=== PATIENT | male | born 1985 | race Caucasian/White ===

== ENCOUNTER 2018-11-26 11:34 | Emergency (ER) | payer OTHER ==
[2018-11-26] MEDS ORDERED: MORPHINE SULFATE 10 MG/ML INJ IV ONE (12:39)
[2018-11-26 13:02] LABS: ABSOLUTE BASOPHILS # (AUTO) 0.1 10^3/uL (0.0-0.2); ABSOLUTE EOSINOPHILS # (AUTO) 0.3 10^3/uL (0.0-0.6); ABSOLUTE LYMPHOCYTES (AUTO) 2.5 10^3/uL (0.5-4.7); ABSOLUTE MONOCYTES (AUTO) 0.8 10^3/uL (0.1-1.4); ABSOLUTE NEUT (AUTO) 4.9 10^3/uL (1.7-8.2); EOSINOPHILS % (AUTO) 3.3 % (0-6); HEMOGLOBIN 16.1 g/dL (13.5-17.0); LYMPHOCYTES % (AUTO) 29.5 % (13-45); MEAN CORPUSCULAR HEMOGLOBIN 30.2 pg (27.0-33.4); MEAN CORPUSCULAR VOLUME 86 fl (80-97); MONOCYTES % (AUTO) 8.9 % (3-13); PLATELET COUNT 339 10^3/uL (150-450); RED BLOOD COUNT 5.32 10^6/uL (4.35-5.55); RED CELL DISTRIBUTION WIDTH 12.6 % (11.5-14.0); SEGMENTED NEUTROPHILS % (AUTO) 57.3 % (42-78); TOTAL CELLS COUNTED % (AUTO) 100 %; WHITE BLOOD COUNT 8.5 10^3/uL (4.0-10.5)
[2018-11-26 13:18] LABS: ANION GAP 9 (5-19); BLOOD UREA NITROGEN 14 mg/dL (7-20); CARBON DIOXIDE 29 mmol/L (22-30); CHLORIDE 103 mmol/L (98-107); GLUCOSE 92 mg/dL (75-110); POTASSIUM 4.8 mmol/L (3.6-5.0)
--- NOTE | 2018-11-26 13:38 | ER Document Report ---
ED GI Bleed / Rectal Pain - General Chief Complaint: Rectal Pain Stated Complaint: RECTAL PAIN Time Seen by Provider: 11/26/18 12:17 - HPI Notes: This is a 33-year-old gentleman who presents today with a complaint of rectal pain for the past 1 to 2 days. Patient states that he has a history of hemorrhoids and thinks that this is from his hemorrhoids. Pain is worse with defecation. He denies any fever or chills. He denies any trauma. He denies any rectal sexual activity. - Related Data Allergies/Adverse Reactions: fluconazole Allergy (Intermediate, Verified 11/26/18 11:40) Visual disturbances Past Medical History - Social History Smoking Status: Current Every Day Smoker Chew tobacco use (# tins/day): No Frequency of alcohol use: None Drug Abuse: None Family History: Reviewed & Not Pertinent Patient has suicidal ideation: No Patient has homicidal ideation: No Past Surgical History: Reports: Hx Orthopedic Surgery - R knee surgery Review of Systems - Review of Systems Constitutional: Fever Gastrointestinal: Other - Rectal pain. denies: Abdominal pain, Constipation, Rectal bleeding -: Yes All other systems reviewed and negative Physical Exam - Vital signs Vitals: Temp Pulse Resp BP Pulse Ox 97.8 F 70 16 114/67 100 11/26/18 11:40 11/26/18 11:40 11/26/18 11:40 11/26/18 11:40 11/26/18 11:40 - General General appearance: Appears well, Alert - Respiratory Respiratory status: No respiratory distress Chest status: Nontender Breath sounds: Normal Chest palpation: Normal - Cardiovascular Rhythm: Regular Heart sounds: Normal auscultation Murmur: No - Abdominal Inspection: Normal Distension: No distension Bowel sounds: Normal Tenderness: Nontender Organomegaly: No organomegaly - Rectal Notes: There is swelling and fluctuance in the right perianal area. It looks to be a thrombosed external hemorrhoid with no bleeding. Her very slight erythema on the right buttock area. No fluctuance or tenderness. - Neurological Neuro grossly intact: Yes Cognition: Normal Orientation: AAOx4 [place] Coma Scale Eye Opening: Spontaneous [place] Coma Scale Verbal: Oriented [place] Coma Scale Motor: Obeys Commands [place] Coma Scale Total: 15 Speech: Normal Motor strength normal: LUE, RUE, LLE, RLE Sensory: Normal - Skin Skin Temperature: Warm Skin Moisture: Dry Skin Color: Normal Course - Re-evaluation Re-evalutation: 11/26/18 13:41 Differential diagnosis includes thrombosed external hemorrhoid versus perirectal abscess. Will get CT scan. 11/26/18 15:47 Pt re-evaluated. Pt is doing well. LAbs and CT reviewed. NO abscess. Will treat for hemorrhoids. He is stable for discharge. Follow-up discussed. - Vital Signs Vital signs: Temp Pulse Resp BP Pulse Ox 97.8 F 70 16 114/67 100 11/26/18 11:40 11/26/18 11:40 11/26/18 11:40 11/26/18 11:40 11/26/18 11:40 - Laboratory Result Diagrams: 11/26/18 12:51 11/26/18 12:51 Discharge - Discharge Clinical Impression: External hemorrhoid, thrombosed, Rectal pain Condition: Good Disposition: HOME, SELF-CARE Instructions: Hemorrhoids ([facility]) Additional Instructions: Warm sizth baths for 15 minutes after every bowel movement. Prescriptions: Hydrocortisone Acetate [Anusol-Hc] 25 mg RC TID 7 Days #21 supp.rect Docusate Sodium [Colace 100 mg Capsule] 100 mg PO BID #20 capsule Lidocaine/Hydrocortisone AC [Lidocaine-Hc 3-0.5% Cream] 7 gm RC BID PRN 5 Days #1 cream.appl PRN Reason: Pain Scale Of 3 Referrals: ABRAM ALMARAZ MD [SEBASTIEN MELCHOR] - (Call on Wednesday to schedule follow-up appointment)
--- NOTE | 2018-11-26 15:33 | RADIOLOGY REPORT (SQ) ---
EXAM DESCRIPTION: CT ABD/PELVIS WITH IV ONLY COMPLETED DATE/TIME: 11/26/2018 2:57 pm REASON FOR STUDY: ? perirectal abscess COMPARISON: None. TECHNIQUE: CT scan of the abdomen and pelvis performed using helical scanning technique with dynamic intravenous contrast injection. No oral contrast. Images reviewed with lung, soft tissue, and bone windows. Reconstructed coronal and sagittal MPR images reviewed. Delayed images for evaluation of the urinary system also acquired. All images stored on PACS. All CT scanners at this facility use dose modulation, iterative reconstruction, and/or weight based d osing when appropriate to reduce radiation dose to as low as reasonably achievable (ALARA). [facility]: Dose Right [facility]: CareDose [facility]: Dose Right [facility]: Teradose 4D [facility]: Privatext CONTRAST TYPE AND DOSE: contrast/concentration: Isovue 350.00 mg/ml; Total Contrast Delivered: 98.0 ml; Total Saline Delivered: 72.0 ml RENAL FUNCTION: Creatinine 1.0 RADIATION DOSE: CT Rad equipment meets quality standard of care and radiation dose reduction techniq ues were employed. CTDIvol: 6.3 - 9.0 mGy. DLP: 905 mGy-cm.. LIMITATIONS: None. FINDINGS: LOWER CHEST: No significant findings. No nodules or infiltrates. LIVER: Normal size. No masses. No dilated ducts. Diffuse low attenuation from fatty infiltration SPLEEN: Normal size. No focal lesions. PANCREAS: No masses. No significant calcifications. No adjacent inflammation or peripancreatic fluid collections. Pancreatic duct not dilated. GALLBLADDER: No identified stones by CT criteria. No inflammatory changes to suggest cholecystitis. ADRENAL GLANDS: No significant masses or asymmetry. RIGHT KIDNEY AND URETER: No solid masses. No significant calcifications. No hydronephrosis or hyd roureter. LEFT KIDNEY AND URETER: No solid masses. No significant calcifications. No hydronephrosis or hydr oureter. AORTA AND VESSELS: No aneurysm. No dissection. Renal arteries, SMA, celiac without stenosis. RETROPERITONEUM: No retroperitoneal adenopathy, hemorrhage or masses. BOWEL AND PERITONEAL CAVITY: No masses or inflammatory changes. No free fluid or peritoneal masses. APPENDIX: Normal. PELVIS: No mass. No free fluid. Normal bladder. ABDOMINAL WALL: No masses. No hernias. BONES: No significant or acute findings. OTHER: No perirectal inflammation on delay series 5, images [id number]. No perirectal abscess is identif ied. IMPRESSION: NO SIGNIFICANT OR ACUTE FINDING IN THE ABDOMEN OR PELVIS ON CT SCAN WITH IV CONTRAST. TECHNICAL DOCUMENTATION: JOB ID: [id number] Quality ID # [id number]: Final reports with documentation of one or more dose reduction techniques (e.g., Au tomated exposure control, adjustment of the mA and/or kV according to patient size, use of iterative reconstruction technique) 2010 [employer]- All Rights Reserved Reading location - IP/workstation name: [email or web address]
[2018-11-26 16:19] VITALS: BP 115/70
== END 2018-11-26 16:14 | disposition home or self-care (01) ==
LOC: ER 11:34
DX: K64.5 Perianal venous thrombosis (principal); K62.89 Other specified diseases of anus and rectum; F17.200 Nicotine dependence, unspecified, uncomplicated; Z88.3 Allergy status to other anti-infective agents
CPT/HCPCS: 85025; 74177; J2270; 96374; 99284